=== PATIENT | female | born 1955 | race Caucasian/White ===

== ENCOUNTER → 2020-04-15 11:14 | Outpatient (CLI) | payer MEDICARE, SELFPAY ==
--- NOTE | ~2020-04-15 | MM_ITS ---
EXAMINATION: MM screening carolynn BI w faviola HISTORY: Screening TECHNIQUE: Craniocaudal and mediolateral oblique 3-D tomosynthesis images were obtained and synthetic 2-D images were generated. CAD analysis was submitted and interpreted. COMPARISON: Comparison to multiple prior studies sequentially, with oldest reviewed study dated 05/13. BREAST PARENCHYMAL COMPOSITION: Breast composed of scattered areas of fibroglandular density FINDINGS: There is no evidence of suspicious mass, calcification, or architectural distortion to sugg est malignancy in either breast. There has been no suspicious interval change. IMPRESSION: 1. No mammographic evidence of malignancy. 2. Recommend routine screening mammography in one year. BI-RADS Category 1: Negative Reviewed, dictated and finalized at location A.
== END ==
PROVIDERS: PCP Emergency Medicine; Visit Provider Emergency Medicine
DX: Z12.31 Encounter for screening mammogram for malignant neoplasm of breast (principal)
CPT/HCPCS: 77063; 77067

== ENCOUNTER 2021-02-05 08:12 | Emergency (ER) | payer MEDICARE, SELFPAY ==
[2021-02-05 08:19] VITALS: BP 158/87; PULSE 84; RESP 20; TEMP 37.1; O2SAT 100
--- NOTE | 2021-02-05 08:19 | ED.GENADULT ---
HPI - General Adult General Stated complaint: lower abd pain Time Seen by Provider: 02/05/21 08:16 Source: patient Mode of arrival: ambulatory Limitations: no limitations History of Present Illness HPI narrative: 66-year-old female patient presents to the [facility] with complaints of lower abdominal pain for the past 2 to 3 days. Patient states she has had some pain to the vaginal area whenever she urinates recently. Patient states a couple years ago she did have a very bad bladder infection and her doctor told her that when her symptoms started to get it looked at right away. Patient states she did take some Advil today for pain. Denies any fevers, body aches or chills. Denies any nausea, vomiting or diarrhea. Patient states she has had some low back pain. Last normal bowel movement was this morning. Related Data Allergies Allergy/AdvReac Type Severity Reaction Status Date / Time codeine Allergy Unknown TACHYCARDIA Verified 01/07/18 15:47 Review of Systems Review of Systems: Narrative: CONSTITUTIONAL: Denies fever, chills, or sweats. EYES: Denies visual changes, redness, or discharge. ENT: Denies rhinorrhea, congestion, sore throat, or otalgia. CARDIOVASCULAR: Denies chest pain, palpitations, or edema. RESPIRATORY: Denies cough or dyspnea. GASTROINTESTINAL: Positive lower abdominal pain, denies nausea, vomiting, or diarrhea. GENITOURINARY: Positive dysuria, denies hematuria. SKIN: Denies rash or itching. MUSCULOSKELETAL: Denies back pain, joint pain, or myalgia. NEUROLOGIC: Denies headache, numbness, or weakness. PSYCHIATRIC: Denies anxiety or depression. [facility] Past Medical History Medical History (Updated 02/05/21 @ 08:37 by VAL Santoyo) Hypothyroidism Surgical History Surgical History (Updated 02/05/21 @ 08:38 by VAL Santoyo) Finger joint replacement of right hand Right thumb H/O: hysterectomy History of appendectomy History of orthopedic surgery Left wrist History of tonsillectomy Comments At the time of my signature I agree with nursing past medical history, surgical, social, and family history. There is no relevant family history pertinent to the presenting complaint. Exam Narrative: Exam Narrative: GENERAL: Well-appearing, well-nourished, and in no acute distress. HEAD: Normocephalic, atraumatic. EYES: PERRLA and EOMI. ENT: Nares clear, no rhinorrhea or epistaxis. Mucous membranes moist. NECK: Supple. No lymphadenopathy CHEST: Clear to auscultation. No respiratory distress. HEART: Regular rate and rhythm. No murmur heard. Normal peripheral pulses. ABDOMEN: Soft, flat, nondistended. No guarding, rebound tenderness, or rigid. No pulsatilla masses. Bowel sounds present in all four quadrants. Patient does have slight tenderness noted to left lower quadrant, right lower quadrant and suprapubic area. No organomegaly. Negative Guillermo?s sign. No periumbicial tenderness. Good femoral pulses bilaterally. No hernia noted. No scars or surface trauma. No CVA tenderness on percussion. EXTREMITIES: Normal range of motion. No edema. SKIN: Warm, dry, no rash. NEURO: No focal deficits. Alert and oriented x3. Course Vital Signs Vital signs: Vital Signs Temperature 37.1 C 02/05/21 08:19 Pulse Rate 84 02/05/21 08:19 Respiratory Rate 20 02/05/21 08:19 Blood Pressure 158/87 H 02/05/21 08:19 Pulse Oximetry 100 02/05/21 08:19 Temperature 37.1 C 02/05/21 08:19 Pulse Rate 84 02/05/21 08:19 Respiratory Rate 20 02/05/21 08:19 Blood Pressure 158/87 H 02/05/21 08:19 Pulse Oximetry 100 02/05/21 08:19 Vital signs reviewed The patient has been informed that they may have pre-hypertension or Hypertension based on a BP reading in the department. I recommend that the patient call the primary care provider listed on their discharge instructions or a physician of their choice this week to arrange follow up for further evaluation of possible pre-hypertension or Hypertension
== END 2021-02-05 08:38 | disposition home or self-care (01) ==
PROVIDERS: Emergency Provider Nurse Practitioner Family; PCP Emergency Medicine
DX: N30.00 Acute cystitis without hematuria (principal); E03.9 Hypothyroidism, unspecified
CPT/HCPCS: 81003; 87086; 99213; G0463

== ENCOUNTER 2021-02-07 12:33 | Outpatient (CLI) | payer MEDICARE, SELFPAY ==
--- NOTE | ~2021-02-07 | MR_ITS ---
EXAMINATION: MR lumbar spine wo con DATE: 02/07/2021 13:17 INDICATION: Rectal pressure. TECHNIQUE: Magnetic resonance imaging (MRI) of the lumbar spine was performed without intravenous con trast. Sequences included sagittal T2-weighted FSE, sagittal T2-weighted FS FSE, sagittal T1-weighted FSE, and axial T2-weighted FSE. COMPARISON: None FINDINGS: There is 6 degrees levocurvature of lumbar spine. Vertebral body heights are normal. There is mildly decreased disc height at L4-L5. The distal spinal cord signal intensity is normal. The conu s medullaris is at T12-L1. The following disc levels are specifically discussed: L1-L2: The disc does not extend beyond the endplate margin. There is no facet joint osteoarthritis. T here is no neural foraminal stenosis. There is no central canal stenosis. L2-L3: The disc does not extend beyond the endplate margin. There is no facet joint osteoarthritis. T here is no neural foraminal stenosis. There is no central canal stenosis. L3-L4: The disc is bulging. There is no facet joint osteoarthritis. There is mild left neural foramin al stenosis. There is mild central canal stenosis. L4-L5: The disc is bulging. There is severe right and moderate left facet joint osteoarthritis. There is mild bilateral neural foraminal stenosis. There is mild central canal stenosis. L5-S1: The disc does not extend beyond the endplate margin. There is mild bilateral facet joint osteo arthritis. There is no neural foraminal stenosis. There is no central canal stenosis. IMPRESSION: 1. Mild lumbar spondylosis. Reviewed, dictated and finalized at location A. IMPRESSION: 1. Mild lumbar spondylosis.
== END 2021-02-07 12:34 | disposition home or self-care (01) ==
PROVIDERS: PCP Emergency Medicine; Visit Provider Emergency Medicine
DX: R20.2 Paresthesia of skin (principal); M47.896 Other spondylosis, lumbar region
CPT/HCPCS: 72148

== ENCOUNTER → 2021-02-17 10:37 | Outpatient (CLI) | payer MEDICARE, OTHER, SELFPAY ==
--- NOTE | ~2021-02-17 | US_ITS ---
EXAMINATION: US pelvic complete w TV EXAM DATE: 02/17/2021 11:21 INDICATION: Pelvic and perineal pain. TECHNIQUE: Pelvic transabdominal and transvaginal sonogram was performed. There are multiple graysca le and Doppler images available for interpretation. There is no prior study for comparison. FINDINGS: Uterus and ovaries are not identified. No adnexal mass. Vaginal cuff unremarkable on transv aginal imaging. IMPRESSION: 1. Uterus, ovaries not identified. Reviewed, dictated and finalized at location B.
== END ==
PROVIDERS: PCP Emergency Medicine; Visit Provider Emergency Medicine
DX: R10.2 Pelvic and perineal pain (principal)
CPT/HCPCS: 76830; 76856

== ENCOUNTER → 2021-03-14 13:09 | Outpatient (CLI) | payer MEDICARE, SELFPAY ==
--- NOTE | ~2021-03-14 | DEXA_ITS ---
Bone Density Report Name: Iva Raymond Age: 66 Sex: Female Ethnicity: White Date of : 1955 Indication: postmenopausal osteoporosis; parental hip fracture; height loss; prior fracture; hysterectomy; Referring Provider: DANY GARRETT Study: Bone densitometry was performed. Exam Date: March 14, 2021 Accession number: [id number] Bone Density: Region BMD T-score Z-score Classification AP Spine (L1-L4) 0.445 -5.5 -3.7 Osteoporosis Femoral Neck (Left) 0.474 -3.4 -1.9 Osteoporosis Total Hip (Left) 0.597 -2.8 -1.6 Osteoporosis Femoral Neck (Right) 0.488 -3.3 -1.7 Osteoporosis Total Hip (Right) 0.635 -2.5 -1.3 Osteoporosis Total Hip Mean 0.616 -2.7 -1.5 Osteoporosis World Health Organization criteria for BMD impression classify patients as: Normal (T-score at or above -1.0), Osteopenia (T-score between -1.0 and -2.5), or Osteoporosis (T-score at or below -2.5). 10-year Fracture Risk: FRAX not reported because: Some T-score for Spine Total or Hip Total or Femoral Neck at or below -2.5 Previous Exams: Region Exam Age BMD T-score BMD Change BMD Change Date g/cm2 vs Baseline vs Previous AP Spine(L1-L4) 03/14/2021 66 0.445 -5.5 -0.057* -0.044* 06/04/2017 62 0.489 -5.1 -0.012 -0.012 06/04/2017 62 0.501 -5.0 Total Hip(Left) 03/14/2021 66 0.597 -2.8 -0.023 -0.023 06/04/2017 62 0.620 -2.6 Total Hip(Right) 03/14/2021 66 0.635 -2.5 -0.002 -0.002 06/04/2017 62 0.637 -2.5 *Denotes significance at 95% confidence level, LSC for AP Spine = 0.022 g/cm2, LSC for Total Hip = 0.027 g/cm2 Clinical Information Provided by Patient: Has had a low trauma fracture Parent has had a hip fracture Has used the following medications: Vitamin D Has the following medical conditions: Hysterectomy Patient maximum height was 67 Menopause Age: 42 Does not regularly consume dairy products Drinks caffeinated beverages Onset of menses at age 17 Number of children 3 Impression: The patient has established osteoporosis, based on the Total Spine T-score and the existence of a prior fracture. The patient has risk factors, including: parental hip fracture, previous fracture. The BMD for the AP Spine(L1-L4) decreased, changing by -0.044 since the last DXA exam. Discussion: HIGH RISK OF FRACTURE. BONE DENSITY IS UNDESIRABLY LOW AT ONE OR MORE SKELETAL SITES, CONSISTENT WITH POSTMENOPAUSAL OSTEOPOROSIS.
--- NOTE | ~2021-03-14 | US_ITS ---
EXAMINATION: US thyroid DATE: 03/14/2021 13:58 INDICATION: Hypothyroidism. TECHNIQUE: Multiple ultrasound images of the thyroid were obtained. COMPARISON: None. FINDINGS: The right thyroid lobe measures 3.8 x 1.2 x 1.3 cm. The left thyroid lobe measures 4.3 x 0.8 x 1.1 c m. There is normal echotexture and echogenicity throughout the thyroid gland. No discrete nodules id entified. Normal vascular flow is present. IMPRESSION: 1. Normal thyroid. Reviewed, dictated and finalized at location A. IMPRESSION: 1. Normal thyroid.
== END ==
PROVIDERS: PCP Emergency Medicine; Visit Provider Emergency Medicine
DX: M81.0 Age-related osteoporosis without current pathological fracture (principal); E03.9 Hypothyroidism, unspecified
CPT/HCPCS: 76536; 77080

== ENCOUNTER → 2021-04-18 12:25 | Outpatient (CLI) | payer MEDICARE, SELFPAY ==
--- NOTE | ~2021-04-18 | MM_ITS ---
EXAMINATION: MM screening carolynn BI w faviola HISTORY: Screening mammogram TECHNIQUE: Craniocaudal and mediolateral oblique 3-D tomosynthesis images were obtained and synthetic 2-D images were generated. CAD analysis was submitted and interpreted. COMPARISON: 04/2020, 03/11/2019, 05/31/2017 bilateral digital screening mammogram examinations BREAST PARENCHYMAL COMPOSITION: There are scattered areas of fibroglandular density. FINDINGS: There is no evidence of suspicious mass, calcification, or architectural distortion to sugg est malignancy in either breast. There has been no suspicious interval change. IMPRESSION: 1. No mammographic evidence of malignancy. 2. Recommend routine screening mammography in one year. BI-RADS Category 1: Negative Reviewed, dictated and finalized at location A.
== END ==
PROVIDERS: PCP Emergency Medicine; Visit Provider Obstetrics & Gynecology
DX: Z12.31 Encounter for screening mammogram for malignant neoplasm of breast (principal)
CPT/HCPCS: 77063; 77067

== ENCOUNTER → 2023-03-08 09:38 | Outpatient (CLI) | payer MEDICARE, SELFPAY ==
--- NOTE | ~2023-03-08 | MM_ITS ---
EXAMINATION: MM screening carolynn BI w faviola HISTORY: Screening mammogram, family history of breast cancer in her mother. TECHNIQUE: Craniocaudal and mediolateral oblique 3-D tomosynthesis images were obtained and synthetic 2-D images were generated. CAD analysis was submitted and interpreted. COMPARISON: 04/18/2021, 04/15/2020, 03/11/2019 BREAST PARENCHYMAL COMPOSITION: The breasts are heterogeneously dense, which may obscure small masses . FINDINGS: No suspicious mass, calcification, or architectural distortion are identified in either darius ast to suggest malignancy. There has been no suspicious interval change. IMPRESSION: 1. No mammographic evidence of malignancy. 2. Recommend routine screening mammography in one year. BI-RADS Category 1: Negative Reviewed, dictated and finalized at location A.
== END ==
PROVIDERS: PCP Obstetrics & Gynecology; Visit Provider Obstetrics & Gynecology
DX: Z12.31 Encounter for screening mammogram for malignant neoplasm of breast (principal)
CPT/HCPCS: 77063; 77067

== ENCOUNTER → 2023-07-05 10:52 | Outpatient (CLI) | payer MEDICARE, SELFPAY ==
--- NOTE | ~2023-07-05 | DEXA_ITS ---
Bone Density Report Name: JOEY KINNEY Age: 68 Sex: Female Ethnicity: White Date of : 1955 Indication: postmenopausal osteoporosis; monitoring treatment; parental hip fracture; height loss; prior fracture; hysterectomy; Referring Provider: DANY GARRETT Study: Bone densitometry was performed. Exam Date: July 05, 2023 Accession number: [id number] Bone Density: Region BMD T-score Z-score Classification AP Spine (L1-L4) 0.448 -5.4 -3.5 Osteoporosis Femoral Neck (Left) 0.481 -3.3 -1.7 Osteoporosis Total Hip (Left) 0.588 -2.9 -1.5 Osteoporosis Femoral Neck (Right) 0.476 -3.4 -1.7 Osteoporosis Total Hip (Right) 0.604 -2.8 -1.4 Osteoporosis Total Hip Mean 0.596 -2.9 -1.5 Osteoporosis World Health Organization criteria for BMD impression classify patients as: Normal (T-score at or above -1.0), Osteopenia (T-score between -1.0 and -2.5), or Osteoporosis (T-score at or below -2.5). 10-year Fracture Risk: FRAX not reported because: Some T-score for Spine Total or Hip Total or Femoral Neck at or below -2.5 Treated for osteoporosis Previous Exams: Region Exam Age BMD T-score BMD Change BMD Change Date g/cm2 vs Baseline vs Previous AP Spine(L1-L4) 07/05/2023 68 0.448 -5.4 -0.053* 0.003 03/14/2021 66 0.445 -5.5 -0.057* -0.044* 06/04/2017 62 0.489 -5.1 -0.012 -0.012 06/04/2017 62 0.501 -5.0 Total Hip(Left) 07/05/2023 68 0.588 -2.9 -0.033* -0.009 03/14/2021 66 0.597 -2.8 -0.023 -0.023 06/04/2017 62 0.620 -2.6 Total Hip(Right) 07/05/2023 68 0.604 -2.8 -0.033* -0.031* 03/14/2021 66 0.635 -2.5 -0.002 -0.002 06/04/2017 62 0.637 -2.5 *Denotes significance at 95% confidence level, LSC for AP Spine = 0.022 g/cm2, LSC for Total Hip = 0.027 g/cm2 Clinical Information Provided by Patient: Has had a low trauma fracture Parent has had a hip fracture Is being treated for osteoporosis Has used the following medications: Fosamax (i.e. alendronate), HRT (i.e. estrogen/hormone therapy), Vitamin D Has the following medical conditions: Hysterectomy Patient maximum height was 67 Menopause Age: 42 Does not regularly consume dairy products Drinks caffeinated beverages Onset of menses at age 17 Number of children 3 Impression: The patient has established osteoporosis, based on the Total Spine T-score and the exi
== END ==
PROVIDERS: PCP Emergency Medicine; Visit Provider Emergency Medicine
DX: M81.0 Age-related osteoporosis without current pathological fracture (principal)
CPT/HCPCS: 77080

== ENCOUNTER 2023-07-19 14:30 | Observation (INO) | payer MEDICARE, SELFPAY ==
[2023-07-19] VITALS (19 sets, daily range): BP systolic 128–175; BP diastolic 69–99; PULSE 70–108; RESP 12–22; TEMP 36.7; O2SAT 95–100
--- NOTE | ~2023-07-19 | CT_ITS ---
EXAMINATION: CTA brain carotid DATE: 07/19/2023 21:26 INDICATION: Dizziness. Vertigo. TECHNIQUE: Computed tomographic angiography (CTA) of the head was performed with 100 mL Omnipaque-350 intravenous contrast. CTA of the neck was performed with intravenous contrast. Automated exposure co ntrol and iterative reconstruction technique were employed. The dose-length product was 1025.48 mGy-c m. Maximum intensity projection and volume rendered 3D-reconstructions [facility] on a separate workstation. COMPARISON: Head CT 07/19/2023 FINDINGS: HEAD CTA: There are scattered areas of low attenuation in the cerebral white matter, which is within normal limits for the patient's age. There is no intracranial hemorrhage, acute infarction, or abnorm al intracranial mass lesion. The ventricles are normal in size. The orbits are normal. There is mild mucosal thickening in the ethmoid sinuses. The mastoid air cells are normal. Left vertebral artery is dominant. There is no significant stenosis of basilar artery or the posterior cerebral arteries. The re is no significant stenosis of the intracranial internal carotid arteries or anterior or middle cer ebral arteries. Anterior communicating aneurysm artery is normal. The posterior communicating arterie s are normal. There is no aneurysm. NECK CTA: There is mild scarring at the lung apices. There is associated stenosis of the vertebral ar teries. There is no visible plaque in the proximal internal carotid arteries. There is 0% stenosis of the proximal right internal carotid artery relative to normal distal artery lumen diameter (NASCET c riteria). There is 0% stenosis of the proximal left internal carotid artery relative to normal distal artery lumen diameter. There is mild cervical spondylosis. IMPRESSION: 1. Normal aging brain. 2. No aneurysm or significant intracranial arterial stenosis. 3. 0% stenosis of the proximal internal carotid arteries relative to normal distal artery lumen diame ters (NASCET criteria). Reviewed, dictated and finalized at location E. PPER PRINTED CIRCUIT BOARDS IMPRESSION: 1. Normal aging brain. 2. No aneurysm or significant intracranial arterial stenosis. 3. 0% stenosis of the proximal internal carotid arteries relative to normal dis brandi artery lumen diameters (NASCET criteria).
--- NOTE | ~2023-07-19 | MR_ITS ---
EXAMINATION: MR brain/brain stem wo/w con DATE: 07/20/2023 09:13 INDICATION: Intractable vertigo. TECHNIQUE: Magnetic resonance imaging (MRI) of the brain and brainstem was performed without and with 11 mL MultiHance intravenous contrast. COMPARISON: Head CT 07/19/2023 FINDINGS: There are scattered areas of nonspecific increased T2-weighted signal intensity in the cere bral white matter, which is within normal limits for the patient's age. There is no intracranial hemo rrhage, acute infarction, or abnormal intracranial mass lesion. The ventricles are normal in size. Th e paranasal sinuses are clear. The orbits are normal. The mastoid air cells are normal. IMPRESSION: 1. Normal aging brain. Reviewed, dictated and finalized at location E. OSAL WRITER IMPRESSION: 1. Normal aging brain.
--- NOTE | ~2023-07-19 | CT_ITS ---
EXAMINATION: CT brain wo con DATE: 07/19/2023 17:43 INDICATION: Dizziness. TECHNIQUE: Computed tomography (CT) of the head was performed without intravenous contrast. The mA wa s adjusted according to patient size. Iterative reconstruction technique was employed. The dose-lengt h product was 605.33 mGy-cm. COMPARISON: None FINDINGS: There is no intracranial hemorrhage, acute infarction, or abnormal intracranial mass lesion . There are scattered areas of low attenuation in the cerebral white matter, which is within normal l imits for the patient's age. The ventricles are normal in size. The orbits are normal. There is mild mucosal thickening in the ethmoid sinuses. The mastoid air cells are normal. IMPRESSION: 1. Normal aging brain. Reviewed, dictated and finalized at location E. EE BREAK ATTENDANT IMPRESSION: 1. Normal aging brain.
--- NOTE | 2023-07-19 14:51 | ECG_ITS ---
Measurements Intervals [place] Rate: 102 P: 78 AK: 174 QRS: 63 QRSD: 86 T: 22 QT: 343 QTc: 449 Interpretive Statements SINUS TACHYCARDIA LEFT ATRIAL ENLARGEMENT LOW QRS VOLTAGE IN PRECORDIAL LEADS ST DEPRESSION, POSSIBLE ISCHEMIA Electronically Signed On 07-20-2023 13:08:27 FLYING TEACHER by Caleb Olson M.D.
--- NOTE | 2023-07-19 17:56 | ED.DIZZY ---
HPI - Dizziness General Chief Complaint: Dizziness Stated Complaint: high blood pressure/dizzy/congestion Time Seen by Provider: 07/19/23 17:11 Source: patient Mode of arrival: ambulatory Limitations: no limitations History of Present Illness HPI Narrative: patient is a 68-year-old female who presents to the ED with report of dizziness and HTN. Patient reports having intermittent dizziness over the last 2 days, described as though the room is spinning with laying flat, standing up, turning head. She states this lasts for a few minutes before resolving with rest. She has never had symptoms like this before. Denies previous history of vertigo. She has had some congestion, ear pressure, intermittent headaches over the last couple of days. Denies fevers, cough, shortness breath, confusion, N/V, vision changes, tinnitus, numbness / tingling, weakness in extremities. Patient saw her primary care doctor today and was noted to have elevated blood pressure in the office. She was then sent here for further evaluation. Patient denies previous history of hypertension. She notes hx of white coat hypertension. Related Data Home Medications Medication Instructions Recorded Confirmed levothyroxine 25 mcg tablet 25 mcg PO DAILY 12/25/22 03/20/23 Allergies Allergy/AdvReac Type Severity Reaction Status Date / Time codeine Allergy Unknown TACHYCARDIA Verified 07/19/23 14:50 Review of Systems Review of Systems: CONSTITUTIONAL: Denies fever, chills, or sweats. ENT: See HPI. Denies vision changes. CARDIOVASCULAR: Denies chest pain, palpitations, or edema. RESPIRATORY: Denies cough or dyspnea. GASTROINTESTINAL: Denies abdominal pain, nausea, vomiting. MUSCULOSKELETAL: Denies back pain, joint pain, or myalgia. NEUROLOGIC: See HPI. All systems reviewed & are unremarkable except as noted in HPI and below [facility] Past Medical History Medical History Hypothyroidism Osteoporosis Surgical History Surgical History Finger joint replacement of right hand Right thumb H/O: hysterectomy History of appendectomy History of orthopedic surgery Left wrist History of tonsillectomy Hx of hernia repair Family History Family History Mother Breast cancer Father Carcinoma of colon Heart disease Social History Social History Smoking status: Never smoker Alcohol intake: never Substance use: never Substance use type: does not use Living arrangements: with family Occupation/Education: retired Gender identity (if verbalized by the patient): Female Sexual Orientation (if Verbalized by the Patient): Straight or Heterosexual Spiritual care concerns: No Exam Narrative: GENERAL: Well appearing, well-nourished, non-toxic, in no acute distress. HEAD: Normocephalic, atraumatic. EYES: PERRL/EOMI, conjunctivae clear bilaterally. Very faint fatigable nystagmus when looking to the right. EARS: TMS clear, with good light reflex. small amount of fluid noted behind left TM. No erythema or bulging. Small amount of cerumen in right EAC, no cerumen impaction. THROAT: Pharynx clear, no exudate. MMs moist. NECK: Supple. No adenopathy, no masses. No meningeal signs. RESPIRATORY: Airway patent, respirations nonlabored. Clear to auscultation bilaterally, no rales, rhonchi, wheezing. CARDIOVASCULAR: Regular rate and rhythm without murmurs, rubs, or gallops. radial pulses 2+ and equal bilaterally. MUSCULOSKELETAL: Moves all extremities. Strength/ROM intact without gross deformities. SKIN: Warm, dry, normal color. No rashes. NEURO: A&O X3. Speech clear. Follows commands. CN II-XII intact. Sensation grossly intact. Steady gait. No ataxic movements. Strength 5/5 in upper and lower extremities bilate
[2023-07-19 18:07] LABS: Basophils Absolute Auto 0.1 K/mm3 (0.0-0.1); Eosinophils Percent Auto 0.5 % (0-4.4); Hematocrit 39.9 % (37.0-47.0); Hemoglobin 12.9 g/dL (12.0-15.0); Immature Granulocyte Absolute 0.01 K/mm3 (0.00-0.031); Immature Granulocyte Percent A 0.2 % (0-0.5); Lymphocytes Absolute Auto 1.11 K/mm3 (0.9-3.2); Lymphocytes Percent Auto 18.2 % (18.3-44.2); Mean Corpuscular HGB Conc 32.3 g/dl (32-36); Mean Corpuscular Hemoglobin 29.6 pg (26-34); Mean Corpuscular Volume 91.5 fl (80-100); Mean Platelet Volume 11.5 fl (7.4-10.4); Monocytes Absolute Auto 0.5 K/mm3 (0.1-0.6); Monocytes Percent Auto 8.9 % (2.6-8.5); Neutrophils Absolute Auto 4.4 K/mm3 (1.3-6.7); Neutrophils Percent Auto 71.2 % (45.5-73.1); Platelet Count Result 252 k/mm3 (150-375); Red Blood Count 4.36 M/mm3 (4.2-5.4); Red Cell Distribution Width 13.1 % (11.5-14.5); White Blood Count 6.1 K/mm3 (4.5-10.0)
[2023-07-19 18:14] LABS: Sodium 136 mmol/L (137-145)
[2023-07-19 18:16] LABS: Alanine Aminotransferase 14 U/L (6-35); Albumin Level 4.6 g/dL (3.5-5.1); Alkaline Phosphatase 81 U/L (38-126); Anion Gap 8 mmol/L (8-16); Aspartate Amino Transferase 23 U/L (14-36); Bilirubin,Total 0.6 mg/dL (0.2-1.3); Blood Urea Nitrogen 10 mg/dL (7-17); Carbon Dioxide 24 mmol/L (22-30); Chloride 104 mmol/L (98-107); Estimated CRCL calculation 67 ml/min; Estimated Glomerular Filt Rate > 60; Glucose 118 mg/dL (65-110); Magnesium 2.1 mg/dL (1.6-2.3); Potassium 3.4 mmol/L (3.4-5.0)
[2023-07-19] MEDS: SODIUM CHLORIDE 0.9% IV 1,000 ML 999 ML IV CONT ×2 (18:17→20:07)
[2023-07-19] MEDS: ONDANSETRON INJ 4 MG/2 ML VIAL IV PUSH (18:17)
[2023-07-19] MEDS: MECLIZINE HCL 25 MG TABLET PO (18:17)
[2023-07-19 18:43] LABS: Influenza A QL RT-PCR Negative (Negative); Influenza B QL RT-PCR Negative (Negative); RSV RNA, RT-PCR Negative (Negative); SARS-CoV-2 RNA PCR Negative (Negative)
--- NOTE | 2023-07-19 19:10 | PC.NURSE ---
Report received from VINAY Mccormack. Assumed care of patient at this time.
[2023-07-19 19:25] LABS: Appearance Urine Clear (Clear); Bacteria Urine None Seen /hpf; Bilirubin Urine Negative (Negative); Blood Urine 1+ (Negative); Color Urine Yellow (Yellow); Glucose Urine UA Negative (Negative); Ketones Urine 2+ mg/dL (Negative); Leukocyte Esterase Ur Negative LEU/UL (Negative); Nitrate Urine Negative (Negative); Non Pathogenic Casts 0-2; Protein Urine Negative (Negative); RBC Urine 0-2 /hpf (0-2); Specific Grav Ur 1.008 (1.001-1.035); Squamous Epithelial Cell Urine None seen /hpf (Few); Urobilinogen Urine 0.2 mg/dL (<2.0); WBC Urine 0-5 /hpf
[2023-07-19 19:52] LABS: Add Urine Microscopic? YES
[2023-07-19] MEDS: diazePAM (*CRX) 5 MG TABLET PO (21:17)
[2023-07-20 01:05] VITALS: BP 137/72; PULSE 68; RESP 13; O2SAT 100
[2023-07-20 02:02] VITALS: BMI 21.4
--- NOTE | 2023-07-20 02:09 | ADMGEN ---
This patient, Iva Raymond, was admitted to Medical Room 345-01. Patient/family oriented to hospital policies and general routines including ID bracelet, bed and alarms, visiting hours, pain management, procedures, bathroom and other care routines, personal items, smoking policy, room service/diet, and visiting hours. Information on how to activate the Rapid Response Team has been discussed. Patient/Family are encouraged to report perceived risks to care and to ask questions if they do not understand what they are told or what they should do.
[2023-07-20 04:00] VITALS: PULSE 65
[2023-07-20 06:00] VITALS: BP 138/62; PULSE 69; RESP 20; TEMP 36.6; O2SAT 98
[2023-07-20 08:00] VITALS: PULSE 92
[2023-07-20] MEDS: LEVOTHYROXINE SODIUM 25 MCG TABLET PO (09:29)
[2023-07-20] MEDS: MECLIZINE HCL 12.5 MG TABLET PO (09:29)
--- NOTE | 2023-07-20 10:38 | PM.SD2 ---
Same Day Admit/Disch: HPI History of Present Illness Chief complaint: intractable vertigo Narrative: Iva Raymond is a 68 year old female with a past medical history of hypothyroidism that presented to the ED on 07/19/2023 due to dizziness. Patient had the symptoms the past couple days. Patient's symptoms were worse this when changing positions especially when going from a lying to sitting position. She denied any nausea, vision changes, light sensitivity or falls associated with the dizziness. She does have headaches but this is not new to her. She has never had dizziness like this before in the past. She is admitted for further workup of the dizziness. She had a CTA which revealed normal aging brain as well as an MRI which also revealed normal aging brain. Patient's symptoms improved with meclizine and 1 dose of Valium in the ED. orthostatics negative. Patient's symptoms likely due to benign positional vertigo. Will discharge home on meclizine. [facility] Past Medical History Medical History (Updated 07/20/23 @ 10:51 by Luisa Davenport PA-C) Hypothyroidism Osteoporosis Surgical History Surgical History Finger joint replacement of right hand Right thumb H/O: hysterectomy History of appendectomy History of orthopedic surgery Left wrist History of tonsillectomy Hx of hernia repair Family History Family History Mother Breast cancer Father Carcinoma of colon Heart disease Social History Social History Smoking status: Never smoker Second hand tobacco smoke exposure: No Alcohol intake: never Substance use: never Substance use type: does not use Lack of Transportation: No Lack of Food: Never True Current Housing: I Have Housing Concerned About Future Housing: No Difficulty Paying Gas/Electric Bills: No Difficulty Paying for Meds: No Currently Unemployed: No Education: Associate Degree Difficulty w/ Childcare or Family Care: No Living arrangements: with family Occupation/Education: retired Gender identity (if verbalized by the patient): Female Sexual Orientation (if Verbalized by the Patient): Straight or Heterosexual Spiritual care concerns: No Same Day Admit/Disch: Med Pre-admit Medications Home Medications Medication Instructions Recorded Confirmed Type estradiol 0.01% (0.1 mg/gram) 1 g vaginal 2XW #42.5 grams 12/25/22 07/20/23 Rx vaginal cream levothyroxine 25 mcg tablet 25 mcg PO DAILY 12/25/22 07/20/23 History Exam Narrative: GENERAL: Comfortable, no acute distress HENMT: moist mucous membranes EYES: EOM intact b/l NECK: no lymphadenopathy RESPIRATORY: clear to auscultation CARDIO: RRR GI: soft, nontender, bowel sounds present SKIN: no rashes EXTREMITIES: no edema, redness or tenderness DS: Data Data Completed and Pending Labs on day of discharge: Labs from last 24 hours 07/19/23 07/19/23 19:16 17:54 WBC 6.1 RBC 4.36 Hgb 12.9 Hct 39.9 MCV 91.5 MCH 29.6 MCHC 32.3 RDW 13.1 Plt Count 252 MPV 11.5 H Immature Gran % (Auto) 0.2 Neut % (Auto) 71.2 Lymph % (Auto) 18.2 L [place] % (Auto) 8.9 H Eos % (Auto) 0.5 Baso % (Auto) 1.0 Lymph # (Auto) 1.11 [place] # (Auto) 0.5 Eos # (Auto) 0.0 Baso # (Auto) 0.1 Abs Immat Gran (auto) 0.01 Absolute Neuts (auto) 4.4 Absolute Nucleated RBC 0.0 Nucleated RBC % 0.0 Sodium 136 L Potassium 3.4 Chloride 104 Carbon Dioxide 24 Anion Gap 8 BUN 10 Creatinine 0.60 L Estim Creat Clear Calc 67 Estimated GFR > 60 Glucose 118 H Calcium 9.0 Magnesium 2.1 Total Bilirubin 0.6 AST 23 ALT 14 Alkaline Phosphatase 81 Total Protein 8.0 Albumin 4.6 Urine Color Yellow Urine Appearance Clear Urine pH 6.0 Ur Specific [place] 1.008 Urine Prote
== END 2023-07-20 11:29 | disposition home or self-care (01) ==
LOC: ANHED 23:11 → ANH3MED 07-20 01:14
PROVIDERS: Admitting Provider Internal Medicine; Emergency Provider Physician Assistant; PCP Emergency Medicine; Visit Provider Internal Medicine
DX: R42 Dizziness and giddiness (principal); E03.9 Hypothyroidism, unspecified; R94.31 Abnormal electrocardiogram [ECG] [EKG]; R03.0 Elevated blood-pressure reading, without diagnosis of hypertension; M81.0 Age-related osteoporosis without current pathological fracture; Z20.822 Contact with and (suspected) exposure to COVID-19; Z79.890 Hormone replacement therapy; Z79.899 Other long term (current) drug therapy
CPT/HCPCS: 36415; 70450; 70496; 70498; 70553; 80053; 81001; 83735; 85025; 87637; 93005; 96361; 96374; 99285; A9270; A9577; G0378; J2405; J7030; Q9967

== ENCOUNTER 2024-05-20 05:48 | Day surgery (SDC) | payer MEDICARE, OTHER, SELFPAY ==
[2024-02-07 12:34] VITALS: BMI 21.7
[2024-05-05 09:13] VITALS: BMI 22.3
--- NOTE | 2024-05-19 15:31 | P.PNAN_ITS ---
Anes - Initial Pre Proc Eval Procedure: Operation Date: 05/20/24 07:30 Proposed Procedures p Screening Colonoscopy - Jacob Pratt MD Date/Time: 05/19/24 15:31 Surgeon: Jacob Pratt MD Pre Op Diagnosis: Neoplasm screening Patient Data Age: 69 Gender: F Height: 1.63 m Weight: 59 kg Allergies Allergy/AdvReac Type Severity Reaction Status Date / Time codeine Allergy Severe TACHYCARDIA Verified 05/20/24 06:16 Home Medications Medication Instructions Recorded Confirmed Type levothyroxine 25 mcg tablet 25 mcg PO DAILY 12/25/22 05/20/24 History estradiol 0.01% (0.1 mg/gram) 1 g vaginal 2XW #42.5 grams 03/24/24 05/20/24 Rx vaginal cream Patient hx anesthesia problems: none Family hx anesthesia problems: none Results Review: All pre-operative results and documents have been reviewed as part of the pre- operative evaluation. [facility] Past Medical History Medical History (Updated 07/20/23 @ 10:51 by Luisa Davenport PA-C) Hypothyroidism Osteoporosis Surgical History Surgical History Finger joint replacement of right hand Right thumb H/O: hysterectomy History of appendectomy History of orthopedic surgery Left wrist History of tonsillectomy Hx of hernia repair Family History Family History Mother Breast cancer Father Carcinoma of colon Heart disease Social History Social History Smoking status: Former smoker Second hand tobacco smoke exposure: No Alcohol intake: never Substance use: never Substance use type: does not use Do You Feel Safe in your Home?: Yes Lack of Transportation: No Lack of Food: Never True Current Housing: I Have Housing Concerned About Future Housing: No Difficulty Paying Gas/Electric Bills: No Difficulty Paying for Meds: No Currently Unemployed: No Education: Associate Degree Difficulty w/ Childcare or Family Care: No Living arrangements: with family Occupation/Education: retired Gender identity (if verbalized by the patient): Female Sexual Orientation (if Verbalized by the Patient): Straight or Heterosexual Spiritual care concerns: No Anes - Eval Final PreProcedure Day of Procedure 05/19/24 15:31 Patient weight: normal Heart: regular rate and rhythm Lungs: clear to auscultation and normal air movement Airway: Mallampati scale class II Neurological: alert and oriented Last oral intake: >/= 8 hours ASA classification: II Emergent: no Anesthetic plan: proceed Anesthesia type and monitoring: general GIVS and standard monitoring Results Review: All pre-operative results and documents have been reviewed as part of the pre- operative evaluation. Informed Consent: The patient's anesthetic plan and its attendant risks and benefits were discussed with the patient/family/POA. Questions were solicited and answers provided to the satisfaction of the patient/family/POA.
[2024-05-20 06:18] VITALS: BP 163/93; PULSE 114; RESP 16; TEMP 37.4; O2SAT 100
[2024-05-20] MEDS: LACTATED RINGERS 1,000 ML 150 ML IV CONT (06:32)
--- NOTE | 2024-05-20 07:09 | SUR.PREOP ---
Pt's pre-op VS HR 114 BP 178/95 163/93. Kia Ba notified. No further orders at this time. Pt denies HTN hx and states has severe white coat syndrome.
--- NOTE | 2024-05-20 07:11 | PM.HPGS ---
History of Present Illness History of Present Illness Consent: Risks, benefits, and alternatives have been discussed and questions answered. Patient agrees to proceed with procedure. Chief complaint: Neoplasm screening Narrative: Iva Raymond is a 69 year old female presents for screening colonoscopy. Patient reports that her weight appetite and bowel movements are normal. She denies abdominal pain. This patient has had no bleeding. Family history is noncontributory. Review of Systems Review of Systems: All systems reviewed & are unremarkable except as noted in HPI and below PMFSH Past Medical History Medical History (Updated 05/20/24 @ 07:13 by Jacob Pratt MD) Hypothyroidism Osteoporosis Surgical History Surgical History Finger joint replacement of right hand Right thumb H/O: hysterectomy History of appendectomy History of orthopedic surgery Left wrist History of tonsillectomy Hx of hernia repair Family History Family History Mother Breast cancer Father Carcinoma of colon Heart disease Social History Social History Smoking status: Former smoker Second hand tobacco smoke exposure: No Alcohol intake: never Substance use: never Substance use type: does not use Do You Feel Safe in your Home?: Yes Lack of Transportation: No Lack of Food: Never True Current Housing: I Have Housing Concerned About Future Housing: No Difficulty Paying Gas/Electric Bills: No Difficulty Paying for Meds: No Currently Unemployed: No Education: Associate Degree Difficulty w/ Childcare or Family Care: No Living arrangements: with family Occupation/Education: retired Gender identity (if verbalized by the patient): Female Sexual Orientation (if Verbalized by the Patient): Straight or Heterosexual Spiritual care concerns: No Meds Home Medications and Allergies Home Medications Medication Instructions Recorded Confirmed Type levothyroxine 25 mcg tablet 25 mcg PO DAILY 12/25/22 05/20/24 History estradiol 0.01% (0.1 mg/gram) 1 g vaginal 2XW #42.5 grams 03/24/24 05/20/24 Rx vaginal cream Allergies Allergy/AdvReac Type Severity Reaction Status Date / Time codeine Allergy Severe TACHYCARDIA Verified 05/20/24 06:16 Vital Signs Vital Signs - 24 hr 05/20/24 06:18 Temperature 99.4 F Pulse Rate 114 H Respiratory Rate 16 Blood Pressure 163/93 H Pulse Oximetry 100 Oxygen Delivery Room Air Exam Narrative: Physical exam reveals the patient to be alert. Signs stable. HEENT exam unremarkable. Patient anicteric. Lungs are clear. Heart without murmur. Abdomen bowel sounds are present soft nontender with no organomegaly. Digital external rectal exam normal. Assessment and Plan Assessment and plan (1) Screen for colon cancer: Code(s): Z12.11 - Encounter for screening for malignant neoplasm of colon Status: Acute Assessment and Plan: Patient presents for neoplasia screening. Appears to be at average risk for colon polyps. Further recommendations may be given after endoscopy.
[2024-05-20 07:40] VITALS: BP 108/69; PULSE 99; RESP 16; O2SAT 99
[2024-05-20 07:50] VITALS: BP 122/72; PULSE 85; RESP 16; O2SAT 99
[2024-05-20 08:10] VITALS: BP 136/75; PULSE 74; RESP 16; O2SAT 100
--- NOTE | 2024-05-20 09:21 | WPDANESPN ---
Anes - Prog Note Post-Op Date/Time: 05/20/24 09:21 Cardiovascular status: normal Respiratory status: normal Airway patency: baseline Mental status: baseline Post-Op hydration status: normal Vital Signs: Last Vital Signs Temp 37.4 C 05/20/24 06:18 Pulse 74 05/20/24 08:10 Resp 16 05/20/24 08:10 BP 136/75 05/20/24 08:10 Pulse Ox 100 05/20/24 08:10 O2 Del Method Room Air 05/20/24 08:10 Pain Score (VAS): 0 I/O: Intake & Output 05/19/24 05/20/24 05/20/24 23:59 07:59 15:59 Intake Total 500 100 Balance 500 100 Post-procedural complaints: none Patient Feedback: Patient satisfied with anesthetic care. Other Findings: Patient vital signs back to baseline. Patient denies nausea and vomiting. Patient's pain under control. Patient OK for discharge.
== END 2024-05-20 08:14 | disposition home or self-care (01) ==
PROVIDERS: PCP Emergency Medicine; Visit Provider Internal Medicine Gastroenterology
PROC: 0DJD8ZZ Inspection of Lower Intestinal Tract, Via Natural or Artificial Opening Endoscopic (ICD-10-PCS; CPT 45378; principal; 2024-05-20 07:30)
DX: Z12.11 Encounter for screening for malignant neoplasm of colon (principal); K57.30 Diverticulosis of large intestine without perforation or abscess without bleeding
CPT/HCPCS: G0121

== ENCOUNTER 2024-05-25 07:41 | Outpatient (RCR) | payer MEDICARE, OTHER, SELFPAY ==
--- NOTE | 2024-05-25 09:58 | OPREHPOC ---
Outpatient Therapy Plan of Care This is a Multidisciplinary Plan of Care that may contain components documented by all disciplines (PT, OT, and ST.) PT Problem 1 PT Problem #1 Knowledge Deficit PT Goal 1 Goal / Goal Update *indep with HEP Target Visit 6 PT Problem 2 PT Problem #2 Impaired Vestibular System PT Goal 1 Goal / Goal Update pt perform without any dizziness or symptoms reported: 1* rolling R/L in supine 2* supine/sit transfer 3* walking 50', with head motions R/L 3x each 4* Dizziness Handicap Index self rating of 0% limitation in activity level 5* further assessment of vestibular system as indicated with treatment progression Target Visit 6
--- NOTE | 2024-05-25 09:58 | PTOPEVAL1 ---
Assessment and note entered by July Harper, PT Evaluation Information Assessment Status Evaluation ICD-10 Condition Codes (PT) BPPV H81.12 Other ICD-10 Condition Codes ( dizziness R 42 PT) Onset end of February 2024 Subjective Information rolled over in bed and started having dizziness instantly- room spinning; no longer have that; also have neck pain, hold tension in neck and shoulders; headaches about once every 2 weeks; allergy issues/stuffy nose off/on; issue with vertigo and resolved without treatment; saw ENT, instructed to start taking Flonase for 1 month--it helped; recent hearing test: moderate hearing loss-- no recommendations; Meds: hypothyroid, flonase PRN; Activity: retired, active- driving and all home tasks; can do everything, even though have a little dizziness; have been doing some neck and shoulder exercises from on line; Symptoms: sinus pressure; No room spinning sensations Reported Pain Level Pain Score 2: Self Report Additional Pain Score Comments little stiff and tight in neck, most on R side Assessment PT Clinical Summary Sridevi has the diagnosis of vestibular therapy. She had dizziness with room spinning in March, reports it is better now. Flonase helped decrease it. Dizziness Handicap index rating of 16%. History includes: had 2 previous history of dizziness that resolved indep, without treatment; headaches, neck pain, R shoulder pain; hypothyroid, osteoporosis, hearing loss. With the testing: BPPV was negative; she does have decreased ROM of cervical rotation to R with reports of tight, stiff with all cervical motions and R shoulder decreased IR with soreness; muscle spasms over upper traps bilaterals. Education to pt: basic vestibular system, BPPV, [place] for self clearance of BPPV; neck stretching, HEP and posture. Use of heat and stretching to decrease neck pain; Also-- to get an eye exam--uses reader glasses, but have not had eye exam for over 2 years. Discussed use of Flonase more regularly to manage sinus issues, per instructions. She will be going out of town next week for 3 weeks. She will call for appointment when she returns if she had additional needs for treatment. Plan of Care Interventions Manual Therapy,Neuro Re-education,Patient/ Education,Therapeutic Exercise PT Services Indicated Yes Treatment Frequency and 2x/wk for 6 visits; pt will be going out of town Duration for 3 weeks; she will call when she returns to schedule These treatments will address the objective and functional deficits as defined above. The patient will be advanced safely and appropriately in order for the patient to progress towards his/her prior level of function. Additional exercises will be introduced and as well as a comprehensive home exercise program upon discharge, if needed, ?to ensure carryover of functional gains achieved in the clinic. This treatment plan has been reviewed and agreement upon by the patient.
--- NOTE | 2024-07-27 13:02 | PTOPDC ---
Assessment and note entered by July Harper, PT Assessment Status Discharge - Pt Not Present ICD-10 Condition Codes (PT) BPPV H81.12 Other ICD-10 Condition Codes ( dizziness R 42 PT) Onset end of February 2024 Subjective Information pt was not seen this date. Assessment PT Clinical Summary Sridevi was seen for PT evaluation on May 25 for vertigo/vestibular therapy. She did not call for any further treatment after the eval. Discharge PT services. The goals were not addressed. Plan of Care PT Services Indicated Yes
== END 2024-07-27 14:56 | disposition home or self-care (01) ==
LOC: ANHPT 07:41
PROVIDERS: PCP Emergency Medicine; Visit Provider Otolaryngology
DX: R42 Dizziness and giddiness (principal)
CPT/HCPCS: 97110; 97162; 97530

== ENCOUNTER 2024-06-03 11:22 | Outpatient (CLI) | payer MEDICARE, SELFPAY ==
--- NOTE | ~2024-06-03 | MM_ITS ---
EXAMINATION: MM screening [facility] BI w [place] HISTORY: Screening TECHNIQUE: Craniocaudal and mediolateral oblique 3-D tomosynthesis images were obtained and synthetic 2-D images were generated. CAD analysis was submitted and interpreted. COMPARISON: Comparison to multiple prior studies sequentially, with oldest reviewed study dated 05/13. BREAST PARENCHYMAL COMPOSITION: Not dense: There are scattered areas of fibroglandular density. FINDINGS: There is no evidence of suspicious mass, calcification, or architectural distortion to sugg est malignancy in either breast. There has been no suspicious interval change. IMPRESSION: 1. No mammographic evidence of malignancy. 2. Recommend routine screening mammography in one year. BI-RADS CATEGORY 1 - NEGATIVE Reviewed, dictated and finalized at location B.
== END 2024-06-03 11:23 | disposition home or self-care (01) ==
LOC: MICIMG 11:24
PROVIDERS: PCP Emergency Medicine; Visit Provider Emergency Medicine
DX: Z12.31 Encounter for screening mammogram for malignant neoplasm of breast (principal)
CPT/HCPCS: 77063; 77067

== ENCOUNTER 2025-06-07 11:15 | Outpatient (CLI) | payer MEDICARE, SELFPAY ==
--- NOTE | ~2025-06-07 | MM_ITS ---
EXAMINATION: MM screening [facility] BI w [place] HISTORY: Screening TECHNIQUE: Craniocaudal and mediolateral oblique 3-D tomosynthesis images were obtained and synthetic 2-D images were generated. CAD analysis was submitted and interpreted. COMPARISON: Comparison to multiple prior studies sequentially, with oldest reviewed study dated 06/04/2017. BREAST PARENCHYMAL COMPOSITION: Dense: The breasts are heterogeneously dense, which may obscure small masses FINDINGS: There is no evidence of suspicious mass, calcification, or architectural distortion to suggest malignancy in either breast. There has been no suspicious interval change. IMPRESSION: 1. No mammographic evidence of malignancy. 2. Recommend routine screening mammography in one year. BI-RADS Category 1: Negative Reviewed, dictated and finalized at location B.
== END 2025-06-07 11:16 | disposition home or self-care (01) ==
LOC: MICIMG 11:16
PROVIDERS: PCP Emergency Medicine; Visit Provider Emergency Medicine
DX: Z12.31 Encounter for screening mammogram for malignant neoplasm of breast (principal)
CPT/HCPCS: 77063; 77067